=== PATIENT | female | born 1990 | race African-American/Black ===

== ENCOUNTER 2016-09-16 16:42 | Inpatient (IN) | payer OTHER ==
[2016-09-16] MEDS ORDERED: SODIUM CHLORIDE 0.9% 1,000 ML IV ONE ×2 (16:58→20:02)
[2016-09-16] MEDS ORDERED: VANCOMYCIN INJ 1 GM in SODIUM CHLORIDE 0.9% 250 ML IV STA (17:28)
[2016-09-16] MEDS ORDERED: AMPICILLIN 2 GM in SODIUM CHLORIDE 0.9% MINIBAG 100 ML IV STA (17:34)
[2016-09-16] MEDS ORDERED: CEFEPIME 2 GM in SODIUM CHLORIDE 0.9% MINIBAG 100 ML IV STA (17:34)
[2016-09-16] MEDS ORDERED: ACETAMINOPHEN 325 MG TABLET PO STA (17:46)
[2016-09-16] MEDS ORDERED: ONDANSETRON 4 MG/2 ML VIAL IVP STA (17:56)
[2016-09-16] MEDS ORDERED: ACETAMINOPHEN 325 MG TABLET PO ONE (17:57)
[2016-09-16] MEDS ORDERED: LIDOCAINE 1% 50 ML MDV SUBQ STA (18:34)
[2016-09-16] MEDS ORDERED: LIDOCAINE 1% 2 ML VIAL ONE (18:37)
[2016-09-16] MEDS ORDERED: ALBUTEROL NEB 2.5 MG/3 ML INH STA (20:13)
[2016-09-16] MEDS ORDERED: ALBUTEROL NEB 2.5 MG/3 ML INH ONE ×2 (20:21→21:04)
[2016-09-16] MEDS ORDERED: VANCOMYCIN 1 GM VIAL ONE (20:33)
[2016-09-16] MEDS ORDERED: ONDANSETRON 4 MG/2 ML VIAL IVP PRN (20:35)
[2016-09-16] MEDS ORDERED: SODIUM CHLORIDE FLUSH 0.9% 10 ML SYRINGE IVP PRN (20:35)
[2016-09-16] MEDS ORDERED: NAPROXEN 250 MG TABLET PO PRN (20:43)
[2016-09-16] MEDS ORDERED: traMADol 50 MG TABLET PO PRN (21:20)
[2016-09-16] MEDS ORDERED: PSEUDOEPHEDRINE 30 MG TABLET PO PRN (21:24)
[2016-09-16] MEDS ORDERED: HYDROXYCHLOROQUINE 200 MG TABLET PO SCH (21:30)
[2016-09-16] MEDS ORDERED: VANCOMYCIN INJ 1 GM in SODIUM CHLORIDE 0.9% 250 ML IV SCH (22:00)
[2016-09-16] MEDS: SODIUM CHLORIDE FLUSH 0.9% 10 ML SYRINGE IVP SCH (22:17)
[2016-09-16] MEDS ORDERED: SODIUM CHLORIDE 0.9% 1,000 ML IV SCH (22:47)
[2016-09-16] MEDS: ACETAMINOPHEN 325 MG TABLET PO PRN (22:53)
[2016-09-16] MEDS: HYDROXYCHLOROQUINE 200 MG TABLET PO SCH (22:53)
[2016-09-16] MEDS: azaTHIOprine 50 MG TABLET PO SCH (22:53)
[2016-09-16] MEDS: SODIUM CHLORIDE 0.9% 1,000 ML IV SCH (22:54)
[2016-09-17] MEDS: guaiFENesin/CODEINE 5 ML UDC PO PRN ×3 (00:04→16:06)
[2016-09-17] MEDS: SODIUM CHLORIDE 0.9% 1,000 ML IV SCH ×3 (00:14→17:09)
[2016-09-17] MEDS ORDERED: traMADol 50 MG TABLET PO PRN (01:49)
[2016-09-17] MEDS ORDERED: POTASSIUM CHLOR 20 MEQ/100 ML 100 ML IV SCH (02:00)
[2016-09-17] MEDS: MORPHINE 2 MG/ML SYRINGE IVP PRN ×4 (02:10→16:50)
[2016-09-17] MEDS ORDERED: IOPAMIDOL-300 100 ML VIAL IVP ONE (02:48)
[2016-09-17] MEDS ORDERED: POTASSIUM CHLOR 10 MEQ/100 ML 100 ML IV SCH (03:00)
[2016-09-17] MEDS: SODIUM CHLORIDE FLUSH 0.9% 10 ML SYRINGE IVP SCH ×3 (05:01→21:04)
[2016-09-17] MEDS: ALBUTEROL NEB 2.5 MG/3 ML INH PRN ×3 (07:51→20:00)
[2016-09-17] MEDS: CEFEPIME 2 GM in SODIUM CHLORIDE 0.9% MINIBAG 100 ML IV SCH ×2 (08:12→21:04)
[2016-09-17] MEDS: HYDROXYCHLOROQUINE 200 MG TABLET PO SCH ×2 (08:37→21:04)
[2016-09-17] MEDS: azaTHIOprine 50 MG TABLET PO SCH ×2 (08:37→21:04)
[2016-09-17] MEDS: SACCHAROMYCES BOULARDII 250 MG CAPSULE PO SCH ×2 (08:38→16:06)
[2016-09-17] MEDS: ENOXAPARIN 40 MG/0.4 ML SYRINGE SUBQ SCH (08:42)
[2016-09-17] MEDS: POLYETHYLENE GLYCOL 3350 17 GM PACKET PO SCH (08:43)
[2016-09-17] MEDS ORDERED: cefTRIAXone 2 GM in SODIUM CHLORIDE 0.9% MINIBAG 100 ML IV SCH (09:00)
[2016-09-17] MEDS ORDERED: FEXOFENADINE 60 MG TABLET PO SCH (09:00)
[2016-09-17] MEDS ORDERED: AZITHROMYCIN INJ 500 MG in SODIUM CHLORIDE 0.9% 250 ML IV SCH (09:00)
[2016-09-17] MEDS ORDERED: VANCOMYCIN INJ 1.25 GM in SODIUM CHLORIDE 0.9% 250 ML IV SCH (09:00)
[2016-09-17] MEDS ORDERED: VANCOMYCIN INJ 1 GM in SODIUM CHLORIDE 0.9% 250 ML IV ONE (09:30)
[2016-09-17] MEDS: MAGNESIUM SULFATE 2 GRAM 50 ML IV SCH ×2 (10:48→11:13)
[2016-09-17] MEDS ORDERED: POTASSIUM CHLORIDE 20 MEQ TABLET PO ONE (11:00)
[2016-09-17] MEDS: ACETAMINOPHEN 325 MG TABLET PO PRN ×2 (11:25→18:20)
[2016-09-17] MEDS: AZITHROMYCIN INJ 500 MG in SODIUM CHLORIDE 0.9% 250 ML IV SCH (11:33)
[2016-09-17] MEDS: VANCOMYCIN INJ 1 GM, VANCOMYCIN INJ 250 MG in SODIUM CHLORIDE 0.9% 250 ML IV SCH (18:13)
[2016-09-17] MEDS: BENZONATATE 100 MG CAPSULE PO PRN (18:20)
[2016-09-18] MEDS ORDERED: SODIUM CHLORIDE INHALATION 3 ML NEB ONE ×5 (00:01→19:49)
[2016-09-18] MEDS ORDERED: LEVALBUTEROL 1.25 MG INH ONE (00:01)
[2016-09-18] MEDS: guaiFENesin/CODEINE 5 ML UDC PO PRN ×4 (00:13→21:02)
[2016-09-18] MEDS: SODIUM CHLORIDE 0.9% 1,000 ML IV SCH ×2 (01:19→06:26)
[2016-09-18] MEDS: VANCOMYCIN INJ 1 GM, VANCOMYCIN INJ 250 MG in SODIUM CHLORIDE 0.9% 250 ML IV SCH ×2 (01:51→21:03)
[2016-09-18] MEDS: MORPHINE 2 MG/ML SYRINGE IVP PRN (04:35)
[2016-09-18] MEDS: ACETAMINOPHEN 325 MG TABLET PO PRN ×2 (04:35→14:49)
[2016-09-18] MEDS: SODIUM CHLORIDE FLUSH 0.9% 10 ML SYRINGE IVP SCH ×3 (05:06→21:03)
[2016-09-18] MEDS: LEVALBUTEROL 1.25 MG INH PRN ×4 (08:00→19:55)
[2016-09-18] MEDS: CEFEPIME 2 GM in SODIUM CHLORIDE 0.9% MINIBAG 100 ML IV SCH ×2 (08:52→21:01)
[2016-09-18] MEDS: SACCHAROMYCES BOULARDII 250 MG CAPSULE PO SCH ×2 (08:53→18:31)
[2016-09-18] MEDS: azaTHIOprine 50 MG TABLET PO SCH ×2 (08:54→21:02)
[2016-09-18] MEDS: HYDROXYCHLOROQUINE 200 MG TABLET PO SCH ×2 (08:55→21:02)
[2016-09-18] MEDS: FEXOFENADINE 60 MG TABLET PO SCH (08:56)
[2016-09-18] MEDS: MULTIVITAMIN TABLET PO SCH (08:56)
[2016-09-18] MEDS: POLYETHYLENE GLYCOL 3350 17 GM PACKET PO SCH (08:57)
[2016-09-18] MEDS: AZITHROMYCIN INJ 500 MG in SODIUM CHLORIDE 0.9% 250 ML IV SCH (09:41)
[2016-09-18] MEDS ORDERED: LIDOCAINE 2% 10 ML MDV ONE (12:30)
[2016-09-18] MEDS ORDERED: MIDAZOLAM 10 MG/5 ML UDC PO ONE (14:00)
[2016-09-18] MEDS: ENOXAPARIN 40 MG/0.4 ML SYRINGE SUBQ SCH (15:16)
[2016-09-18] MEDS ORDERED: VANCOMYCIN INJ 1 GM, VANCOMYCIN INJ 250 MG in SODIUM CHLORIDE 0.9% 250 ML IV ONE (16:00)
[2016-09-18] MEDS: BENZONATATE 100 MG CAPSULE PO PRN (21:02)
[2016-09-19] MEDS ORDERED: SODIUM CHLORIDE INHALATION 3 ML NEB ONE ×6 (00:31→21:48)
[2016-09-19] MEDS: LEVALBUTEROL 1.25 MG INH PRN ×6 (00:33→21:50)
[2016-09-19] MEDS: SODIUM CHLORIDE 0.9% 1,000 ML IV SCH ×3 (01:28→09:30)
[2016-09-19] MEDS: VANCOMYCIN INJ 1 GM, VANCOMYCIN INJ 250 MG in SODIUM CHLORIDE 0.9% 250 ML IV SCH ×3 (02:02→19:04)
[2016-09-19] MEDS: SODIUM CHLORIDE FLUSH 0.9% 10 ML SYRINGE IVP SCH ×3 (05:50→21:47)
[2016-09-19] MEDS: ACETAMINOPHEN 325 MG TABLET PO PRN ×2 (08:57→13:51)
[2016-09-19] MEDS: CEFEPIME 2 GM in SODIUM CHLORIDE 0.9% MINIBAG 100 ML IV SCH ×2 (08:59→21:46)
[2016-09-19] MEDS: POLYETHYLENE GLYCOL 3350 17 GM PACKET PO SCH (09:04)
[2016-09-19] MEDS: ENOXAPARIN 40 MG/0.4 ML SYRINGE SUBQ SCH (09:06)
[2016-09-19] MEDS: MULTIVITAMIN TABLET PO SCH (09:07)
[2016-09-19] MEDS: FEXOFENADINE 60 MG TABLET PO SCH (09:07)
[2016-09-19] MEDS: azaTHIOprine 50 MG TABLET PO SCH ×2 (09:08→21:46)
[2016-09-19] MEDS: HYDROXYCHLOROQUINE 200 MG TABLET PO SCH ×2 (09:09→21:46)
[2016-09-19] MEDS: SACCHAROMYCES BOULARDII 250 MG CAPSULE PO SCH ×2 (09:09→16:56)
[2016-09-19] MEDS: AZITHROMYCIN INJ 500 MG in SODIUM CHLORIDE 0.9% 250 ML IV SCH (09:40)
[2016-09-19] MEDS: BENZONATATE 100 MG CAPSULE PO PRN (22:23)
[2016-09-19] MEDS: guaiFENesin/CODEINE 5 ML UDC PO PRN (22:23)
[2016-09-20] MEDS: VANCOMYCIN INJ 1 GM, VANCOMYCIN INJ 250 MG in SODIUM CHLORIDE 0.9% 250 ML IV SCH (02:23)
[2016-09-20] MEDS: BENZONATATE 100 MG CAPSULE PO PRN (04:16)
[2016-09-20] MEDS: SODIUM CHLORIDE FLUSH 0.9% 10 ML SYRINGE IVP SCH (06:50)
[2016-09-20] MEDS ORDERED: SODIUM CHLORIDE INHALATION 3 ML NEB ONE (07:23)
[2016-09-20] MEDS: LEVALBUTEROL 1.25 MG INH PRN (08:20)
[2016-09-20] MEDS: CEFEPIME 2 GM in SODIUM CHLORIDE 0.9% MINIBAG 100 ML IV SCH (09:06)
[2016-09-20] MEDS: FEXOFENADINE 60 MG TABLET PO SCH (09:07)
[2016-09-20] MEDS: POLYETHYLENE GLYCOL 3350 17 GM PACKET PO SCH (09:07)
[2016-09-20] MEDS: SACCHAROMYCES BOULARDII 250 MG CAPSULE PO SCH (09:07)
[2016-09-20] MEDS: ENOXAPARIN 40 MG/0.4 ML SYRINGE SUBQ SCH ×2 (09:07→09:24)
[2016-09-20] MEDS: HYDROXYCHLOROQUINE 200 MG TABLET PO SCH (09:08)
[2016-09-20] MEDS: MULTIVITAMIN TABLET PO SCH (09:08)
[2016-09-20] MEDS: azaTHIOprine 50 MG TABLET PO SCH (09:08)
[2016-09-20] MEDS: ACETAMINOPHEN 325 MG TABLET PO PRN (10:05)
[2016-09-20] MEDS: AZITHROMYCIN INJ 500 MG in SODIUM CHLORIDE 0.9% 250 ML IV SCH (10:06)
== END 2016-09-20 10:44 | disposition home or self-care (01) | DRG 871 ==
DX: A41.9 Sepsis, unspecified organism (principal); J18.9 Pneumonia, unspecified organism; M35.1 Other overlap syndromes; M79.7 Fibromyalgia; J45.909 Unspecified asthma, uncomplicated; Z79.899 Other long term (current) drug therapy; Z77.22 Contact with and (suspected) exposure to environmental tobacco smoke (acute) (chronic)

== ENCOUNTER 2016-10-01 10:02 | Outpatient (CLI) | payer OTHER | END 2016-10-01 10:03 | disposition critical access hospital (66) | DX: I95.9 Hypotension, unspecified (principal) | CPT/HCPCS: A0425; A0426 ==

== ENCOUNTER 2016-10-01 10:29 | Emergency (ER) | payer OTHER ==
[2016-10-01] MEDS ORDERED: SODIUM CHLORIDE 0.9% 1,000 ML IV ONE (10:49)
== END 2016-10-01 14:00 | disposition home or self-care (01) ==
DX: E16.2 Hypoglycemia, unspecified (principal); I95.9 Hypotension, unspecified

== ENCOUNTER 2016-12-12 10:25 | Outpatient (CLI) | payer OTHER ==
[2016-12-12 10:52] LABS: BILIRUBIN,URINE NEGATIVE (NEGATIVE)
[2016-12-12 10:59] LABS: WBC,URINE 0-3 /HPF (0-5)
== END 2016-12-12 10:26 | disposition home or self-care (01) ==
LOC: LAB 10:25
PROVIDERS: ATTEND Internal Medicine Nephrology
DX: N30.00 Acute cystitis without hematuria (principal)
CPT/HCPCS: 81001; 87086

== ENCOUNTER 2017-08-07 12:53 | Emergency (ER) | payer OTHER ==
--- NOTE | 2017-08-07 14:25 | XRAY Report ---
EXAM: CHEST RADIOGRAPHY EXAM DATE: 08/07/2017 02:06 PM. CLINICAL HISTORY: Cough . COMPARISON: None. TECHNIQUE: 2 views. FINDINGS: Lungs/Pleura: There is lower lobe airway thickening. There is no consolidative process or focal pneum onia. Lung volumes are normal. Negative for pleural effusion and pneumothorax. Mediastinum: Heart and mediastinal contours are unremarkable. Other: None. IMPRESSION: Airway thickening and inflammation without focal pneumonia. [facility] Referring Provider Line: [phone] SITE ID: [id number]
--- NOTE | 2017-08-07 15:00 | ED Physician Documentation ---
PD HPI DYSPNEA - Stated complaint Stated Complaint: Soa, cough - Chief complaint Chief Complaint: Resp - History obtained from History obtained from: Patient - History of Present Illness Timing - onset: How many weeks ago (1.5) Timing - onset during: Light activity Timing - details: Waxing and waning Improved by: Inhaler/neb Worsened by: Coughing Associated symptoms: Cough, Chest pain / discomfort Similar symptoms before: Diagnosis (History of pneumonia 1 year ago.) - Treatment prior to arrival Treatment prior to arrival: Xopenex nebulizer. - Additional information Additional information: Patient is a 26-year-old female who is Mercedes dependent who presents with productive cough of about one half weeks duration. She reports associated dyspnea which she describes as "chest tightness." She reports headache and myalgias. She denies fever or sore throat. She has a history of pneumonia about 1 year ago, and states that she has had similar symptoms about every 3 or 4 months since that time. 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 She reports that the base housing in which she lives has black mold, and that her children have also had respiratory symptoms. Review of Systems Constitutional: reports: Myalgias. denies: Fever Ears: denies: Ear pain Nose: denies: Congestion Throat: denies: Sore throat Cardiac: reports: Chest pain / pressure Respiratory: reports: Dyspnea, Cough GI: denies: Abdominal Pain, Nausea, Vomiting : denies: Dysuria Skin: denies: Rash Musculoskeletal: denies: Back pain, Extremity swelling Neurologic: reports: Headache. denies: Focal weakness, Numbness PD PAST MEDICAL HISTORY - Past Medical History Cardiovascular: None Respiratory: Pneumonia Neuro: Other Endocrine/Autoimmune: None GI: None CROP PICKER: None : None HEENT: None Psych: None Musculoskeletal: Fibromyalgia Derm: None - Past Surgical History Past Surgical History: Yes General: Appendectomy /CROP PICKER: section, Dilation and currettage - Present Medications Home Medications: Ambulatory Orders Medication Instructions Recorded Confirmed Hydroxychloroquine [Plaquenil] 200 mg PO BID 09/16/16 10/01/16 Acetaminophen [Tylenol] 650 mg PO Q4HR PRN #0 tablet 09/20/16 10/01/16 Levalbuterol Tartrate [Xopenex Hfa] 2 puffs IH Q4H PRN #1 hfa.aer.ad 09/20/16 Multivitamin [Theragran] 1 tab PO DAILY tablet 09/20/16 10/01/16 azaTHIOprine [Imuran] 50 mg PO BID tablet 09/20/16 10/01/16 - Allergies Allergies/Adverse Reactions: Allergies Allergy/AdvReac Type Severity Reaction Status Date / Time amoxicillin trihydrate * Allergy Emesis Verified 08/07/17 13:02 [From Augmentin] potassium clavulanate * Allergy Emesis Verified 08/07/17 13:02 [From Augmentin] - Social History Does the pt smoke?: No Smoking Status: Former smoker Does the pt drink ETOH?: Yes Does the pt have substance abuse?: No - Immunizations Immunizations are current?: Yes PD ED PE NORMAL - Vitals Vital signs reviewed: Yes (Normal) - General General: Alert and oriented X 3, Well developed/nourished - HEENT HEENT: Atraumatic, Ears normal, Moist mucous membranes, Pharynx benign - Neck Neck: Supple, no meningeal sign, No adenopathy, No JVD - Cardiac Cardiac: RRR, No murmur - Respiratory Respiratory: No respiratory distress, Clear bilaterally - Abdomen Abdomen: Soft, Non tender - Back Back: No CVA TTP, No spinal TTP - Derm Derm: No rash - Extremities Extremities: No edema, No calf tenderness / cord - Neuro Neuro: Alert and oriented X 3, No motor deficit, Normal speech Results - Vitals Vitals: Vital Signs - 24 hr 08/07/17 12:57 Temperature 37.6 C H Heart Rate 105 H Respiratory 18 Rate Blood Pressure 102/68 O2 Saturation 98 Oxygen O2 Source Room air - Rads (name of study) 2-view CXR Radiology: Prelim report reviewed, EMP read contemporaneously, See rad report ( Airway thickening and inflammation without focal pneumonia.) PD MEDICAL DECISION MAKING - ED course Complexity details: reviewed results, re-evaluated patient, considered differential, d/w patient, d/w family ED course: Patient's presentation is significant for airway inflammation, without evidence of pneumonia on chest x-ray. She is afebrile, and her lungs sound clear on auscultation currently. She states that her breathing is better now compared to this morning. My concern is mold spores, since she states there is black mold in the home where she resides. I discussed with her and her the importance of changing housing to get away from mold. There is no specific treatment to administer at this time other than the nebulizer treatment which she already undergoes. I discussed with her the importance of outpatient follow -up, as well as potentially worrisome signs or symptoms that should prompt reevaluation in the emergency department. Departure - Departure Disposition: 01 Home, Self Care Clinical Impression: Bronchitis, Mold exposure Condition: Stable Instructions: ED Reactive Airway Disease Follow-Up: [facility] [Provider Group] Comments: Continue using nebulizer treatments as already prescribed. You can use Tylenol or ibuprofen as needed for anti-inflammatory benefit. Apply bleach to mold in your home until you are able to more adequately address the mold situation. Follow up with your primary physician as soon as possible. Call to schedule appointment. Return to the emergency department if you develop increasing difficulty breathing, or otherwise worsening symptoms.
[2017-08-07 15:07] VITALS: BP 97/61
== END 2017-08-07 15:14 | disposition home or self-care (01) ==
LOC: ED 12:53
DX: J40 Bronchitis, not specified as acute or chronic (principal); Z77.120 Contact with and (suspected) exposure to mold (toxic); Z87.891 Personal history of nicotine dependence
CPT/HCPCS: 71046; 99283

== ENCOUNTER 2019-02-14 13:43 | Emergency (ER) | payer OTHER ==
[2019-02-14 14:08] LABS: BILIRUBIN,URINE NEGATIVE (NEGATIVE); GLUCOSE, URINE (UA) NEGATIVE (NEGATIVE); KETONES,URINE (UA) NEGATIVE (NEGATIVE); LEUKOCYTE ESTERASE, URINE NEGATIVE (NEGATIVE); NITRITE,URINE NEGATIVE (NEGATIVE); OCCULT BLOOD,URINE TRACE-LYSE (NEGATIVE); PROTEIN,URINE 100 mg/dL (NEGATIVE); UROBILINOGEN,URINE 0.2 (NORMAL) E.U./dL (NORMAL)
[2019-02-14 14:10] LABS: CLARITY,URINE CLEAR (CLEAR)
[2019-02-14 14:11] LABS: HCG UR QUAL NEGATIVE
[2019-02-14 14:29] LABS: RBC,URINE 0-5 /HPF (0-5)
[2019-02-14 14:30] LABS: BACTERIA,URINE Few /HPF (None Seen); CASTS, URINE 0-2 Fine Granular /LPF; MUCUS,URINE Few Strands; SQUAMOUS EPITHELIAL CELL,UR FEW Squamous (<= Few)
--- NOTE | 2019-02-14 14:44 | ED Physician Documentation ---
History of Present Illness - Stated complaint Stated Complaint: RT SIDE PX - Chief complaint Chief Complaint: Abd Pain - History obtained from History obtained from: Patient, Family - History of Present Illness Timing: Today Pain level max: 6 Pain level now: 5 - Additonal information Additional information: 28-year-old female with mixed connective tissue disease and chronic kidney disease. She had a kidney biopsy done at [facility] days ago. She states that she was doing well, but woke up with increasing pain today. She states that she was told to come here for further evaluation. No fevers. No vomiting. No diarrhea. Has had constipation. Worse with movement and palpation. Better with rest. Review of Systems Constitutional: denies: Fever, Chills Respiratory: denies: Cough GI: denies: Vomiting, Diarrhea : denies: Dysuria, Frequency, Hesitancy, Hematuria Skin: denies: Rash Musculoskeletal: denies: Neck pain, Back pain Neurologic: denies: Headache PD PAST MEDICAL HISTORY - Past Medical History Past Medical History: Yes Cardiovascular: None Respiratory: Pneumonia Neuro: None Endocrine/Autoimmune: None GI: None OFFICE NURSE: None : Renal insuffiency HEENT: None Psych: None Musculoskeletal: Fibromyalgia Derm: None - Past Surgical History Past Surgical History: Yes General: Appendectomy /OFFICE NURSE: section, Dilation and currettage, Tubal ligation - Present Medications Home Medications: Ambulatory Orders Medication Instructions Recorded Confirmed Hydroxychloroquine [Plaquenil] 200 mg PO BID 09/16/16 10/01/16 Acetaminophen [Tylenol] 650 mg PO Q4HR PRN #0 tablet 09/20/16 10/01/16 Levalbuterol Tartrate [Xopenex Hfa] 2 puffs IH Q4H PRN #1 hfa.aer.ad 09/20/16 10/01/16 Multivitamin [Theragran] 1 tab PO DAILY tablet 09/20/16 10/01/16 azaTHIOprine [Imuran] 50 mg PO BID tablet 09/20/16 10/01/16 Hydrocodone/Acetaminophen 1 - 2 each PO Q6H PRN #14 tablet 02/14/19 [Hydrocodon-Acetaminophen 5-325] - Allergies Allergies/Adverse Reactions: Allergies Allergy/AdvReac Type Severity Reaction Status Date / Time amoxicillin trihydrate * Allergy Emesis Verified 08/07/17 13:02 [From Augmentin] potassium clavulanate * Allergy Emesis Verified 08/07/17 13:02 [From Augmentin] - Social History Does the pt smoke?: No Smoking Status: Never smoker Does the pt drink ETOH?: Yes Does the pt have substance abuse?: No - Immunizations Immunizations are current?: Yes - POLST Patient has POLST: No PD ED PE NORMAL - Vitals Vital signs reviewed: Yes - General General: Alert and oriented X 3, No acute distress, Well developed/nourished - HEENT HEENT: PERRL, Moist mucous membranes - Neck Neck: Supple, no meningeal sign - Cardiac Cardiac: RRR, Strong equal pulses - Respiratory Respiratory: No respiratory distress, Clear bilaterally - Abdomen Abdomen: Soft, Non tender, Non distended - Back Back: Other (Tender to palpation right flank. No signs of infection.) - Derm Derm: Warm and dry - Extremities Extremities: No edema, No calf tenderness / cord - Neuro Neuro: Alert and oriented X 3 - Psych Psych: Normal mood, Normal affect Results - Vitals Vitals: Vital Signs - 24 hr 02/14/19 02/14/19 02/14/19 13:48 15:49 16:43 Temperature 36.7 C 36.7 C Heart Rate 118 H 88 88 Respiratory 20 18 18 Rate Blood Pressure 107/61 89/53 L 94/68 O2 Saturation 100 100 98 Oxygen O2 Source Room air - Labs Labs: Laboratory Tests 02/14/19 02/14/19 02/14/19 13:55 14:44 14:44 WBC 4.4 L RBC 3.92 L Hgb 10.5 L Hct 33.7 L MCV 86.0 MCH 26.8 L MCHC 31.2 L RDW 13.4 Plt Count 181 MPV 9.8 Neut # (Auto) 2.9 Lymph # (Auto) 1.1 L [place] # (Auto) 0.4 Eos # (Auto) 0.0 Baso # (Auto) 0.0 Absolute Nucleated RBC 0.00 Nucleated RBC % 0.0 Sodium 139 Potassium 3.9 Chloride 105 Carbon Dioxide 28 Anion Gap 6.0 BUN 9 Creatinine 1.1 H Estimated GFR (MDRD) 71 L Glucose 85 Calcium 9.2 Total Bilirubin 0.3 AST 40 ALT 27 Alkaline Phosphatase 40 L Total Protein 7.9 Albumin 3.2 Globulin 4.7 H Albumin/Globulin Ratio 0.7 L Lipase 25 Urine Color YELLOW Urine Clarity CLEAR Urine pH 6.0 Ur Specific [place] >=1.030 H Urine Protein 100 H Urine Glucose (UA) NEGATIVE Urine Ketones NEGATIVE Urine Occult Blood TRACE-LYSE Urine Nitrite NEGATIVE Urine Bilirubin NEGATIVE Urine Urobilinogen 0.2 (NORMAL) Ur Leukocyte Esterase NEGATIVE Urine RBC 0-5 Urine WBC 0-3 Ur Squamous Epith Cells FEW Squamous Urine Bacteria Few Urine Casts 0-2 Fine Granular Urine Mucus Few Strands Ur Microscopic Review INDICATED Urine Culture Comments NOT INDICATED Urine HCG, Qual NEGATIVE - Rads (name of study) Ct angio abdomen Radiology: Prelim report reviewed, EMP read contemporaneously, See rad report (Small right perinephric hematoma compatible with provided history of right renal biopsy. No large hematoma or significant mass effect on the right kidney. No evidence of arterial phase extravasation to suggest ongoing bleeding. Prominent rectosigmoid stool burden, potentially constipation. Correlate to postprocedural opioid analgesia. ) PD MEDICAL DECISION MAKING - ED course Complexity details: reviewed results, re-evaluated patient, considered differential, d/w patient, d/w family ED course: 28-year-old female with flank pain of unclear etiology. She does have a small right perinephric hematoma, compatible with her recent biopsy. Not larger than expected. I discussed the case with Dr. Jimenez, radiology here who also performs interventional radiology. No evidence of renal artery aneurysm or arterial bleed. Pain well controlled. No evidence of infection. No evidence of pyelonephritis. Patient counseled regarding signs and symptoms for which I believe and urgent re-evaluation would be necessary. Patient with good un derstanding of and agreement to plan and is comfortable going home at this time This document was made in part using voice recognition software. While efforts are made to proofread this document, sound alike and grammatical errors may occur. Departure - Departure Disposition: 01 Home, Self Care Clinical Impression: Flank pain Condition: Good Instructions: ED Abdominal Pain Unkn Cause Follow-Up: [facility] [employer] [Primary Care Provider] - Within 1 week Prescriptions: Hydrocodone/Acetaminophen [Hydrocodon-Acetaminophen 5-325] 1 - 2 each PO Q6H PRN #14 tablet PRN Reason: pain Comments: You have a small hematoma around the kidney which is normal post procedure. You also have constipation. There are no other acute findings on your testing today. Return if you worsen. Do not drink alcohol or drive while on narcotic pain medicine. Note that many narcotic pain relievers also contain tylenol/acetaminophen. Please ensure that your total dose of acetaminophen from all sources does not exceed 3 grams (3000mg) per day. You may constipated on this medication, take a stool softener such as "Colace" twice a day while you are on it. Also recommend a [id number]-tlu-hhohtcl laxative such as senna or MiraLAX any day that you do not have a bowel movement. If you received narcotic pain medication in the emergency department, do not drive or operate machinery for the next 24 hours. Discharge Date/Time: 02/14/19 16:46
[2019-02-14 15:02] LABS: BASOPHILS % (AUTO) 0.2 %; EOSINOPHILS % (AUTO) 0.2 %; HGB - HEMOGLOBIN 10.5 g/dL (12.0-16.0); LYMPHOCYTES # (AUTO) 1.1 10^3/uL (1.5-3.5); LYMPHOCYTES % (AUTO) 25.2 %; MEAN CORPUSCULAR HEMOGLOBIN 26.8 pg (27.0-31.0); MEAN CORPUSCULAR HGB CONC 31.2 g/dL (32.0-36.0); MEAN PLATELET VOLUME 9.8 fL (7.9-10.8); MONOCYTES # (AUTO) 0.4 10^3/uL (0.0-1.0); MONOCYTES % (AUTO) 8.4 %; NEUTROPHILS # (AUTO) 2.9 10^3/uL (1.5-6.6); NEUTROPHILS % (AUTO) 65.5 %; PLT - PLATELET COUNT 181 10^3/uL (130-450); RED BLOOD COUNT 3.92 10^6/uL (4.20-5.40); RED CELL DISTRIBUTION WIDTH 13.4 % (12.0-15.0); WHITE BLOOD COUNT 4.4 x10^3/uL (4.8-10.8)
[2019-02-14] MEDS ORDERED: IOVERSOL 320 100 ML VIAL IVP ONE ×2 (15:07→16:07)
[2019-02-14 15:20] LABS: ALBUMIN 3.2 g/dL (3.2-5.5); ALBUMIN/GLOBULIN RATIO 0.7 (1.0-2.2); BILIRUBIN,TOTAL 0.3 mg/dL (0.2-1.0); CALCIUM 9.2 mg/dL (8.5-10.3); CREATININE 1.1 mg/dL (0.4-1.0); TOTAL PROTEIN 7.9 g/dL (6.7-8.2)
--- NOTE | 2019-02-14 16:16 | CT Report ---
Reason: R kidney biopsy 5 days ago, now increased pain Procedure Date: 02/14/2019 Accession Number: [id number] / [id number] Procedure: CT - ANGIO ABDOMEN W/WO CPT Code: FULL RESULT: EXAM: CTA ABDOMEN AND PELVIS INDICATION: Right renal biopsy 5 days ago. Now with increasing pain. TECHNIQUE: Following intravenous administration of OPTI 320 80ML, axial sections were obtained through the abdomen and pelvis. Multiplanar 3D reconstructions are available for interpretation. In accordance with CT protocol optimization, one or more of the following dose reduction techniques were utilized for this exam: automated exposure control, adjustment of mA and/or KV based on patient size, or use of iterative reconstructive technique. COMPARISON: None. FINDINGS: UPPER ABDOMINAL AORTA: Normal. MESENTERIC ARTERIES: The celiac trunk and its branch vessels including splenic and hepatic vasculature are patent and demonstrate conventional anatomy. SMA and NITISH are patent and unremarkable. RENAL ARTERIES: Normal bilateral single renal arteries. A prominent right suprarenal aortic branch vessel supplies the proximal collecting system as well as lumbar paraspinal musculature. DISTAL AORTA AND ILIAC ARTERIES: Normal. FEMORAL ARTERIES: Normal. CT ABDOMEN AND PELVIS: There is a 0.7 cm thick small right perinephric hematoma. There is no significant mass effect on the right kidney. The right nephrogram is complete and symmetric to the left. No pseudoaneurysm or other higher order vascular complication of renal biopsy is detected. No active arterial extravasation is seen. The arterial phase liver, gallbladder, adrenal glands, left kidney, spleen, and pancreas are unremarkable. There is no bowel obstruction. There is no lymphadenopathy by size criteria. There is no free fluid or free air. Within the pelvis the uterus is prominent, potentially fibroid. Prominent stool burden is seen in the rectosigmoid distribution. IMPRESSION: Small right perinephric hematoma compatible with provided history of right renal biopsy. No large hematoma or significant mass effect on the right kidney. No evidence of arterial phase extravasation to suggest ongoing bleeding. Prominent rectosigmoid stool burden, potentially constipation. Correlate to postprocedural opioid analgesia. [facility]
[2019-02-14] MEDS ORDERED: oxyCODONE 5 MG TABLET PO STA (16:27)
[2019-02-14 16:44] VITALS: BP 94/68
== END 2019-02-14 16:46 | disposition home or self-care (01) ==
LOC: ED 13:43
DX: R10.9 Unspecified abdominal pain (principal); K59.00 Constipation, unspecified; N99.840 Postprocedural hematoma of a genitourinary system organ or structure following a genitourinary system procedure; Y84.8 Other medical procedures as the cause of abnormal reaction of the patient, or of later complication, without mention of misadventure at the time of the procedure; N18.9 Chronic kidney disease, unspecified; M35.1 Other overlap syndromes
CPT/HCPCS: 36415; 74175; 80053; 81001; 81025; 83690; 85025; 99284; A9270; Q9967; 81003; 87086

== ENCOUNTER 2019-09-29 08:00 | Outpatient (CLI) | payer OTHER ==
[2019-09-29 12:28] LABS: CALCIUM 8.8 mg/dL (8.5-10.3); CREATININE 1.3 mg/dL (0.4-1.0)
[2019-09-29 12:37] LABS: BILIRUBIN,URINE NEGATIVE (NEGATIVE); GLUCOSE, URINE (UA) NEGATIVE (NEGATIVE); KETONES,URINE (UA) NEGATIVE (NEGATIVE); LEUKOCYTE ESTERASE, URINE NEGATIVE (NEGATIVE); NITRITE,URINE NEGATIVE (NEGATIVE); OCCULT BLOOD,URINE NEGATIVE (NEGATIVE); PROTEIN,URINE 100 mg/dL (NEGATIVE); UROBILINOGEN,URINE 0.2 (NORMAL) E.U./dL (NORMAL)
[2019-09-29 12:38] LABS: CLARITY,URINE CLEAR (CLEAR)
[2019-09-29 12:45] LABS: BACTERIA,URINE Rare /HPF (None Seen); RBC,URINE 0-5 /HPF (0-5); SQUAMOUS EPITHELIAL CELL,UR FEW Squamous (<= Few)
[2019-09-29 13:25] LABS: MICROALBUMIN,URINE 109.2 mg/dL (0-300.0)
[2019-09-29 13:26] LABS: CREATININE,URINE 101.7 mg/dL; MICROALBUM/CREATININE RATIO,UR 1073.7 ug/mg (<30.0)
== END 2019-09-29 23:59 | disposition home or self-care (01) ==
LOC: LAB.WCP 08:00
PROVIDERS: ATTEND Internal Medicine Nephrology
DX: N05.9 Unspecified nephritic syndrome with unspecified morphologic changes (principal)
CPT/HCPCS: 36415; 80048; 81001; 82043; 82570

== ENCOUNTER 2019-10-21 08:08 | Outpatient (CLI) | payer OTHER ==
[2019-10-21 13:23] LABS: BASOPHILS % (AUTO) 0.3 %; EOSINOPHILS % (AUTO) 0.8 %; HGB - HEMOGLOBIN 11.5 g/dL (12.0-16.0); LYMPHOCYTES # (AUTO) 1.9 10^3/uL (1.5-3.5); LYMPHOCYTES % (AUTO) 52.1 %; MEAN CORPUSCULAR HEMOGLOBIN 25.7 pg (27.0-31.0); MEAN CORPUSCULAR HGB CONC 30.1 g/dL (32.0-36.0); MEAN CORPUSCULAR VOLUME 85.3 fL (81.0-99.0); MEAN PLATELET VOLUME 12.2 fL (7.9-10.8); MONOCYTES # (AUTO) 0.4 10^3/uL (0.0-1.0); MONOCYTES % (AUTO) 10.2 %; NEUTROPHILS # (AUTO) 1.3 10^3/uL (1.5-6.6); NEUTROPHILS % (AUTO) 36.3 %; PLT - PLATELET COUNT 183 10^3/uL (130-450); RED BLOOD COUNT 4.48 10^6/uL (4.20-5.40); WHITE BLOOD COUNT 3.6 x10^3/uL (4.8-10.8)
[2019-10-21 13:34] LABS: BILIRUBIN,URINE NEGATIVE (NEGATIVE); GLUCOSE, URINE (UA) NEGATIVE (NEGATIVE); KETONES,URINE (UA) NEGATIVE (NEGATIVE); LEUKOCYTE ESTERASE, URINE NEGATIVE (NEGATIVE); NITRITE,URINE NEGATIVE (NEGATIVE); OCCULT BLOOD,URINE SMALL (NEGATIVE); PROTEIN,URINE 30 mg/dL (NEGATIVE); UROBILINOGEN,URINE 0.2 (NORMAL) E.U./dL (NORMAL)
[2019-10-21 13:38] LABS: ALBUMIN 3.1 g/dL (3.2-5.5); ALBUMIN/GLOBULIN RATIO 0.8 (1.0-2.2); ALKALINE PHOSPHATASE 43 IU/L (42-121); ALT ALANINE AMINOTRANSFERASE 17 IU/L (10-60); AST ASPARTATE AMINOTRANSFERASE 27 IU/L (10-42); BILIRUBIN,TOTAL 0.4 mg/dL (0.2-1.0); BUN - BLOOD UREA NITROGEN 18 mg/dL (6-20); CALCIUM 8.7 mg/dL (8.5-10.3); CARBON DIOXIDE - CO2 27 mmol/L (21-32); CHLORIDE 103 mmol/L (101-111); CK- CREATINE KINASE 88 IU/L (22-269); CREATININE 1.2 mg/dL (0.4-1.0); GLUCOSE 76 mg/dL (70-100); SODIUM 136 mmol/L (135-145); TOTAL PROTEIN 6.8 g/dL (6.7-8.2)
[2019-10-21 13:43] LABS: CLARITY,URINE CLEAR (CLEAR)
[2019-10-21 13:48] LABS: CREATININE,URINE 27.3 mg/dL; PROTEIN/CREATININE RATIO,URINE 1.3 (<=0.2)
[2019-10-21 13:50] LABS: BACTERIA,URINE Few /HPF (None Seen); RBC,URINE 0-5 /HPF (0-5); SQUAMOUS EPITHELIAL CELL,UR FEW Squamous (<= Few)
[2019-10-21 13:54] LABS: CRP - C-REACTIVE PROTEIN < 1.0 mg/dL (0-1.0)
[2019-10-25 12:35] LABS: COMPLEMENT COMPONENT C3C 124 mg/dL (83-193); COMPLEMENT COMPONENT C4C 26 mg/dL (15-57)
== END 2019-10-21 23:59 | disposition home or self-care (01) ==
LOC: LAB.WCP 08:08
PROVIDERS: ATTEND Internal Medicine Nephrology
DX: M35.1 Other overlap syndromes (principal); N05.9 Unspecified nephritic syndrome with unspecified morphologic changes; R80.9 Proteinuria, unspecified
CPT/HCPCS: 36415; 80053; 81001; 81599; 82550; 82570; 84156; 85025; 85651; 86140; 86160; 86162; 87086